=== PATIENT | female | born 1950 | race Caucasian/White ===

== ENCOUNTER → 2016-05-26 | Outpatient (CLI) | payer MEDICARE ==
--- NOTE | 2016-05-27 14:35 | MM ---
Reason for exam: screening (asymptomatic). Last mammogram was performed 1 year and 1 month ago. History: Patient is postmenopausal and is nulliparous. Took estrogen for 2 years. Physical Findings: A clinical breast exam by your physician is recommended on an annual basis and results should be correlated with mammographic findings. MG 3D Screening Mammo W/Cad Bilateral CC and MLO view(s) were taken. Prior study comparison: April 30, 2015, bilateral MG 3d screening mammo w/cad. February 15, 2014, mammogram, performed at [facility]. The breast tissue is heterogeneously dense. This may lower the sensitivity of mammography. There is no discrete abnormality. No significant changes when compared with prior studies. ASSESSMENT: Negative, BI-RAD 1 RECOMMENDATION: Routine screening mammogram of both breasts in 1 year.
== END ==
LOC: RADMAMWWP 09:08
PROVIDERS: ATTEND Obstetrics & Gynecology
DX: Z12.31 Encounter for screening mammogram for malignant neoplasm of breast (principal)
CPT/HCPCS: 77063; G0202

== ENCOUNTER → 2017-08-16 | Outpatient (CLI) | payer MEDICARE ==
--- NOTE | 2017-08-18 09:13 | MM ---
Reason for exam: screening (asymptomatic). Last mammogram was performed 1 year and 3 months ago. History: Patient is postmenopausal and is nulliparous. Took estrogen for 2 years. Physical Findings: A clinical breast exam by your physician is recommended on an annual basis and results should be correlated with mammographic findings. MG 3D Screening Mammo W/Cad Bilateral CC and MLO view(s) were taken. Prior study comparison: May 27, 2016, bilateral MG 3d screening mammo w/cad. April 30, 2015, bilateral MG 3d screening mammo w/cad. The breast tissue is heterogeneously dense. This may lower the sensitivity of mammography. Small grouped calcifications 9 o'clock left breast not seen well previously on the MLO views. No significant changes when compared with prior studies. ASSESSMENT: Negative, BI-RAD 1 RECOMMENDATION: Routine screening mammogram of both breasts in 1 year.
== END | disposition home or self-care (01) ==
LOC: RADMAMWWP 08:38
PROVIDERS: ATTEND Internal Medicine
DX: Z12.31 Encounter for screening mammogram for malignant neoplasm of breast (principal)
CPT/HCPCS: 77063; 77067

== ENCOUNTER 2018-09-06 09:05 | Emergency (ER) | payer MEDICARE ==
[2018-09-06 09:26] VITALS: BP 109/69; PULSE 85; RESP 18; TEMP 98.3
--- NOTE | 2018-09-06 09:48 | ED ---
Skin/Abscess/FB HPI - General Chief complaint: Skin/Abscess/Foreign Body Stated complaint: poss poison heidi Time Seen by Provider: 09/06/18 09:37 Source: patient, RN notes reviewed Mode of arrival: ambulatory Limitations: no limitations - History of Present Illness Initial comments: 68-year-old female presented from chief complaint rash. Patient states started a few days ago after working out in the yard. Patient is very itchy. He did try some topical pain with no relief. Patient denies any fevers or chills. Patient states that she believes it's poison heidi. - Related Data Home Medications Medication Instructions Recorded Confirmed Ascorbic Acid [Vitamin C] 500 mg PO DAILY 09/06/18 09/06/18 Calcium Carbonate [Calcium] 600 mg PO DAILY 09/06/18 09/06/18 Cholecalciferol [Vitamin D3 (25 1,000 unit PO DAILY 09/06/18 09/06/18 Mcg = 1000 Iu)] Clobetasol Propionate [Temovate 1 applic TOPICAL BID 09/06/18 09/06/18 0.05% Cream] Cyanocobalamin (Vitamin B-12) 1,000 mcg PO DAILY 09/06/18 09/06/18 [Vitamin B-12] Previous Rx's Medication Instructions Recorded predniSONE 10 mg PO DIRECTED #30 tab 09/06/18 Allergies Allergy/AdvReac Type Severity Reaction Status Date / Time No Known Allergies Allergy Verified 09/06/18 09:50 Review of Systems ROS Statement: Those systems with pertinent positive or pertinent negative responses have been documented in the HPI. ROS Other: All systems not noted in ROS Statement are negative. Past Medical History Past Medical History: Osteoarthritis (OA) History of Any Multi-Drug Resistant Organisms: None Reported Past Surgical History: Orthopedic Surgery Additional Past Surgical History / Comment(s): foot surg., shoulder Past Anesthesia/Blood Transfusion Reactions: No Reported Reaction Past Psychological History: No Psychological Hx Reported Smoking Status: Former smoker Past Alcohol Use History: Occasional Past Drug Use History: None Reported - Past Family History Father Family Medical History: Cancer Additional Family Medical History / Comment(s): pancreatic Mother Family Medical History: Cancer Additional Family Medical History / Comment(s): thyroid General Exam Limitations: no limitations General appearance: alert, in no apparent distress Head exam: Present: atraumatic, normocephalic, normal inspection ENT exam: Present: normal exam, normal oropharynx, mucous membranes moist Neck exam: Present: normal inspection. Absent: tenderness, meningismus, lymphadenopathy Respiratory exam: Present: normal lung sounds bilaterally. Absent: respiratory distress, wheezes, rales, rhonchi, stridor Cardiovascular Exam: Present: regular rate, normal rhythm, normal heart sounds. Absent: systolic murmur, diastolic murmur, rubs, gallop, clicks Neurological exam: Present: alert, oriented X3, CN II-XII intact Skin exam: Present: warm, dry, intact, normal color, rash ((Rash and upper extremities, chest facial region has cystitis with contact dermatitis, papular neurovascular rash.) Course Vital Signs 09/06/18 09:23 Temperature 98.3 F Pulse Rate 85 Respiratory 18 Rate Blood Pressure 109/69 O2 Sat by Pulse 98 Oximetry Medical Decision Making - Medical Decision Making 68-year-old female presented for rash. Patient has contact dermatitis related to poison heidi. Patient's general steroids continue topical creams. Return parameters were discussed. Disposition Clinical Impression: Contact dermatitis Disposition: HOME SELF-CARE Condition: Stable Instructions (If sedation given, give patient instructions): Poison Heidi (ED) Additional Instructions: Please return to the Emergency Department if symptoms worsen or any other concerns. Prescriptions: predniSONE 10 mg PO DIRECTED #30 tab Is patient prescribed a controlled substance at d/c from ED?: No Referrals: Rossana Martinez DO [Primary Care Provider] - 1-2 days Time of Disposition: 09:48
== END 2018-09-06 09:59 | disposition home or self-care (01) ==
LOC: EC 09:05
DX: L25.5 Unspecified contact dermatitis due to plants, except food (principal); Z87.891 Personal history of nicotine dependence
CPT/HCPCS: 99282

== ENCOUNTER → 2018-12-22 | Outpatient (CLI) | payer MEDICARE ==
--- NOTE | 2018-12-22 11:21 | BD ---
EXAMINATION TYPE: Axial Bone Density DATE OF EXAM: 12/22/2018 COMPARISON: NONE CLINICAL HISTORY: M 81.0 Height: 61.5 Weight: 149 FRAX RISK QUESTIONS: Alcohol (3 or more units per day): no Family History (Parent hip fracture): no Glucocorticoids (More than 3mos): no (Ex: prednisone, prednisolone, methylprednisolone, dexamethasone, and hydrocortisone). History of Fracture in Adulthood: no Secondary Osteoporosis: 1. Type 1 Diabetes: no 2. Hyperthyroidism: no 3. Menopause before 45: no 4. Malnutrition: no 5. Chronic liver disease: no Rheumatoid Arthritis: no Current Tobacco Use: no RISK FACTORS HISTORY OF: Family History of Osteoporosis: no Active: yes Diet low in dairy products/other sources of calcium: no Postmenopausal woman: yes Take estrogen and/or progesterone medications: not now How long: estrogen about 2 years Lost more than 2 inches in height since high school: no Frequent falls: no Poor Health: no Hyperparathyroidism: no Adrenal Insufficiency: no MEDICATIONS: Prednisone or other steroids: no Thyroid Medications: no Osteoporosis Medications: no Additional Medications: calcium & Vitamin D Additional History: none to note EXAM MEASUREMENTS: Bone mineral densitometry was performed using the Xiimo System. Bone mineral density as measured about the Lumbar spine is: ----- L1-L4(G/cm2): 1.474 T Score Values are as follows: ----- L2: 2.3 ----- L3: 1.6 ----- L4: 3.7 ----- L1-L4: 2.4 Bone mineral density not previously done at this facility; done in physician office Bone mineral density about the R hip (g/cm2): 0.906 Bone mineral density about the L hip (g/cm2): 0.876 T Score values are as follows: -----R Neck: -0.9 -----L Neck: -1.2 -----R Total: -0.6 -----L Total: -0.2 Bone mineral density not previously done at this facility; done on physician office IMPRESSION: Osteopenia (T Score between -2.5 and -1). There is slightly increased risk of fracture and the patient may be considered for treatment. Re-Screen 2-5 years. NOTE: T-SCORE=SD OF THE YOUNG ADULT MEAN.
--- NOTE | 2018-12-23 13:57 | MM ---
Reason for exam: screening (asymptomatic). Last mammogram was performed 1 year and 4 months ago. History: Patient is postmenopausal and is nulliparous. Took hormonal contraceptives for 2 years. Took estrogen for 2 years. Physical Findings: A clinical breast exam by your physician is recommended on an annual basis and results should be correlated with mammographic findings. MG 3D Screening Mammo W/Cad Bilateral CC and MLO view(s) were taken. Prior study comparison: August 16, 2017, bilateral MG 3d screening mammo w/cad. May 27, 2016, bilateral MG 3d screening mammo w/cad. There are scattered fibroglandular densities. No significant changes when compared with prior studies. ASSESSMENT: Benign, BI-RAD 2 RECOMMENDATION: Routine screening mammogram of both breasts in 1 year.
== END | disposition home or self-care (01) ==
LOC: RADMAMWWP 07:17
PROVIDERS: ATTEND Internal Medicine
DX: Z12.31 Encounter for screening mammogram for malignant neoplasm of breast (principal); M85.80 Other specified disorders of bone density and structure, unspecified site; M81.0 Age-related osteoporosis without current pathological fracture
CPT/HCPCS: 77063; 77067; 77080

== ENCOUNTER → 2019-09-21 | Outpatient (CLI) | payer MEDICARE ==
--- NOTE | 2019-09-21 22:29 | MR ---
EXAMINATION TYPE: MR shoulder RT wo con DATE OF EXAM: 09/21/2019 COMPARISON: Prior right shoulder MRI February 27, 2014. Prior right shoulder x-ray August 22, 2019. HISTORY: Rt shoulder pain x 3 mos, prior surgery 5 yrs ago TECHNIQUE: Multiplanar, multisequence imaging of the right shoulder is performed without contrast. FINDINGS: Exam noted suboptimal as patient is unable to hold still, there is motion artifact degradat ion present. Rotator Cuff: There is artifact from prior rotator cuff surgery with metallic anchors along the later al aspect of the humeral head. There is recurrent tear of the posterior one third of the supraspinatu s tendon fibers appreciated on sagittal image 6 with roughly 6 mm tendon gap identified. Distal infra spinatus tendon shows no recurrent tear. Subscapularis tendon is intact. The rotator cuff Muscle bulk is preserved. Acromioclavicular Joint: Moderate capsular hypertrophy. Distal acromion morphology unremarkable. Unde rlying fat plane maintained. Marked improvement from prior after surgery. Glenohumeral Joint: Moderate-sized joint effusion increased from prior. Some narrowing with cartilagi nous loss along the osseous glenoid. No significant new spurring. Labrum: Superior labrum is blunted with increased signal suggesting interval tear. Biceps Tendon: The long head of biceps is in normal location within bicipital groove. Intracapsular p ortion not well identified, at least partial tearing is felt present. Bone marrow signal: No focal abnormal marrow signal is appreciated. Other: No additional significant abnormality is appreciated. IMPRESSION: 1. Interval rotator cuff repair surgery. Recurrent partial tearing posterior one third posterior fibe rs supraspinatus tendon. 2. Improved AC joint arthropathy after surgery, no MRI evidence for persistent impingement. 3. Suspect new tear of the superior labrum and partial tearing of the intracapsular portion long head of biceps tendon.
== END | disposition home or self-care (01) ==
LOC: RADMRIMAIN 07:58
PROVIDERS: ATTEND Orthopaedic Surgery
DX: M12.811 Other specific arthropathies, not elsewhere classified, right shoulder (principal); M75.101 Unspecified rotator cuff tear or rupture of right shoulder, not specified as traumatic; Z98.890 Other specified postprocedural states

== ENCOUNTER → 2019-12-01 | Outpatient (CLI) | payer MEDICARE | END | disposition home or self-care (01) | LOC: LABPAT 07:28 | PROVIDERS: ATTEND Orthopaedic Surgery | DX: Z01.818 Encounter for other preprocedural examination (principal); M75.41 Impingement syndrome of right shoulder | CPT/HCPCS: 93005 ==

== ENCOUNTER 2019-12-20 05:44 | Day surgery (SDC) | payer MEDICARE ==
[2019-12-19 09:45] VITALS: BMI 27.4
--- NOTE | 2019-12-19 14:49 | HP ---
HISTORY AND PHYSICAL DATE OF SURGERY: 12/20/2019 Rola Queen is a 69-year-old patient seen with progressive right shoulder pain. We discussed options. She elected to proceed with right shoulder arthroscopy. Consent regarding procedure was obtained. PAST MEDICAL HISTORY: Noncontributory. PAST SURGICAL HISTORY: Right shoulder arthroscopy, foot surgery. DAILY MEDICATIONS: Vitamins. ALLERGIES: None. SOCIAL HISTORY: She denies tobacco use. PHYSICAL EVALUATION RIGHT SHOULDER: Flexion 150 degrees, abduction 140 degrees, external rotation is 40 degrees with some pain and weakness. Tenderness along the anterolateral acromion, rotator cuff insertion site. Impingement is positive at 90 degrees. Drop-arm sign is positive. Distal neurovascular exam is intact. RIGHT SHOULDER RADIOGRAPHS: Right shoulder radiographs revealed a type 2 anterior acromion, acromioclavicular joint osteoarthritis, cystic changes of the greater tuberosity. Right shoulder MRI revealed a rotator cuff tendon tear, labral tear. IMPRESSION: Right shoulder impingement with rotator cuff tear and labral tear. PLAN: Right shoulder arthroscopy, subacromial decompression, arthroscopic rotator cuff repair, possible Esme procedure and debridement. MMODL / IJN: [id number] /
[~2019-12-20 05:44] MED LIST: DEXAMETHASONE SOD PHOSPHATE 10 MG/ML 1 ML VIAL IV ONE; HYDROmorphone 0.5 MG/0.5 ML SYRINGE IVP PRN; LACTATED RINGERS 1,000 ML IV SCH; MIDAZOLAM 2 MG/2 ML VIAL IV PRN; ONDANSETRON 4 MG/2 ML VIAL IVP ONE; fentaNYL (PF) 50 MCG/ML 2 ML AMP IV PRN; fentaNYL (PF) 50 MCG/ML 2 ML AMP IVP PRN
[2019-12-20 06:24] VITALS: RESP 16
[2019-12-20] MEDS ORDERED: LIDOCAINE 1% (10MG/ML) FOR IV START INTRADERMA ONE (06:31)
[2019-12-20] MEDS ORDERED: NEOSTIGMINE 1 MG/ML 10 ML VIAL ONE (07:50)
[2019-12-20] MEDS ORDERED: ROCURONIUM BROMIDE 10 MG/ML 5 ML VIAL IV ONE (07:50)
[2019-12-20] MEDS ORDERED: GLYCOPYRROLATE 0.2 MG/ML 2 ML VIAL ONE (07:50)
[2019-12-20] MEDS ORDERED: PROPOFOL 10 MG/ML 20 ML VIAL IV ONE (07:50)
[2019-12-20] MEDS ORDERED: ePHEDrine SULFATE/0.9% NACL/PF 50 MG/5 ML SYRINGE IV ONE (07:50)
[2019-12-20] MEDS ORDERED: LIDOCAINE 1% INJ 10MG/ML (20 ML MDV) ONE (07:50)
[2019-12-20] MEDS ORDERED: SUCCINYLCHOLINE CHLORIDE 100 MG/5 ML SYR IV ONE (07:50)
--- NOTE | 2019-12-20 08:01 | P.ANPRN ---
Procedure Note - Anesthesia - Nerve Block Performed Right Interscalene Single Time Out Performed: Yes Date of Procedure: 12/20/19 Procedure Start Time: 06:46 Procedure Stop Time: 06:57 Location of Patient: PreOp Indication: Acute Post-Operative Pain, Requested by Surgeon Sedation Type: Sedate with meaningful contact maintained Preparation: Sterile Prep, Sterile Dressing Position: Sitting Catheter: None Needle Types: Facet Needle Gauge: 21 Ultrasound used to visualize needle placement: Yes Ultrasound used to observe medication spread: Yes Injectate: 0.5% Ropivacaine (see comment for volume) (30 ml + decadron 4 mg) Blood Aspirated: No Pain Paresthesia on Injection Noted: No Resistance on Injection: Normal Image Stored and Saved: Yes Events: Uneventful and Well Tolerated
[2019-12-20] MEDS ORDERED: LACTATED RINGERS 1,000 ML IV ONE (09:01)
[2019-12-20 09:23] VITALS: TEMP 96.8
--- NOTE | 2019-12-20 09:31 | P.OP ---
Date of Procedure: 12/20/19 Preoperative Diagnosis: Right shoulder impingement Postoperative Diagnosis: 1. Right shoulder rotator cuff tear 2. Right shoulder impingement 3. Right shoulder acromioclavicular joint osteoarthritis Procedure(s) Performed: 1. Right shoulder arthroscopic rotator cuff repair 2. Right shoulder arthroscopic subacromial decompression 3. Right shoulder arthroscopic Esme procedure Implants: 15.5 Arthrex swivel lock anchor Anesthesia: GETA, regional (Interscalene block) Surgeon: Praneeth Garcia Cylinder Inspector #1: Ken Johns Estimated Blood Loss (ml): 8 Pathology: none sent Condition: stable Disposition: PACU Indications for Procedure: 69-year-old patient seen with progressive right shoulder pain. After treatment options were discussed, she elected to proceed with arthroscopy. Operative Findings: See description of procedure Description of Procedure: Patient underwent an interscalene block by department of anesthesia. The patient was then taken to the operative suite. The patient underwent a general anesthetic by the department of anesthesia. The patient was placed into a lateral position and secured. There was appropriate padding of the bony p rominence. Right shoulder was then prepped and draped in normal sterile orthopedic fashion. We placed the extremity in 10 pounds of longitudinal traction. A posterior incision was now made for a posterior working portal site. The trocar and cannula were inserted into the glenohumeral joint. Arthroscopy was initiated. Spinal needle was now inserted anteriorly, to ascertain the anterior working portal site. An incision was now made in that area, a trocar was inserted followed by a probe. The biceps tendon was absent. There were grade 2 chondromalacia changes of the glenoid fossa with no osteochondral tears present. The labrum was probed and found to be stable. At this point instruments removed from glenohumeral joint. Utilizing the posterior working portal site, the trocar and cannula were inserted into the subacromial space. Arthroscopy initiated. I made an incision 2 fingerbreadths lateral to the acromion. I introduced my trocar followed by my ArthroCare ablator. I now began ablating thick subacromial bursal tissue, which exposed the undersurface of the anterior acromion. There was diminished subacromial space. There was a very prominent anterior acromion. A motorized bur was introduced and a subacromial decompression was performed. I also excised some osteophytes off the inferior aspect of the distal clavicle. The AC joint was visualized and noted to be fairly arthritic. The motorized bur was introduced in the anterior portal site and a Esme procedure was performed without difficulty, decompressing the AC joint nicely. I turned my attention to the rotator cuff. There was a 1.5 cm rotator cuff tear on the posterior aspect of the distal supraspinatus. I debrided the margins gained down to stable tendon tissue. I abraded the footprint with a motorized bur. With the assistance of Bassem DE LOS SANTOS I passed 2 everted mattress sutures through good bites of rotator cuff tendon. I punched the hole in the area footprint for insertion of an anchor. All 4 limbs of suture were passed through the eyelet of a 5.5 Arthrex a lock anchor. I placed the eyelet into the prepunched hole. Bassem DE LOS SANTOS tensioned all 4 limbs of suture and deployed the anchor with good fixation noted. All residual suture limbs were now clipped. We had good compression of the tendon along the entire footprint. I injected 1 mL Renyte intra-articular. Instruments now removed from the portal sites. All portal sites were approximated with nylon suture. Sterile dressings were applied followed by a shoulder sling. Ken DE LOS SANTOS assisted in this complex case. The patient was awakened, transferred to a bed, and taken to recovery in stable condition.
[2019-12-20 09:57] VITALS: PULSE 52
[2019-12-20 10:21] VITALS: BP 122/64
== END 2019-12-20 10:59 | disposition home or self-care (01) ==
LOC: OR 05:44
PROVIDERS: ATTEND Orthopaedic Surgery
DX: M75.101 Unspecified rotator cuff tear or rupture of right shoulder, not specified as traumatic (principal); M75.41 Impingement syndrome of right shoulder; M19.011 Primary osteoarthritis, right shoulder; M25.811 Other specified joint disorders, right shoulder; M25.711 Osteophyte, right shoulder; M94.211 Chondromalacia, right shoulder; Z87.891 Personal history of nicotine dependence; Z98.890 Other specified postprocedural states
CPT/HCPCS: 64415; 76942; 29824; 29826; 29827; C1713; Q4212; J2250; J1100; J2710; J2405; J0690; J2001; J0330; J2704

== ENCOUNTER → 2020-03-15 | Outpatient (CLI) | payer MEDICARE ==
--- NOTE | 2020-03-18 09:55 | MM ---
Reason for exam: screening (asymptomatic). Last mammogram was performed 1 year and 3 months ago. History: Patient is postmenopausal and is nulliparous. Took hormonal contraceptives for 2 years. Took estrogen for 2 years. Physical Findings: A clinical breast exam by your physician is recommended on an annual basis and results should be correlated with mammographic findings. MG 3D Screening Mammo W/Cad Bilateral CC and MLO view(s) were taken. Prior study comparison: December 22, 2018, bilateral MG 3d screening mammo w/cad. August 16, 2017, bilateral MG 3d screening mammo w/cad. The breast tissue is heterogeneously dense. This may lower the sensitivity of mammography. There is no discrete abnormality. No significant changes when compared with prior studies. ASSESSMENT: Negative, BI-RAD 1 RECOMMENDATION: Routine screening mammogram of both breasts in 1 year.
== END | disposition home or self-care (01) ==
LOC: RADMAMWWP 08:37
PROVIDERS: ATTEND Internal Medicine
DX: Z12.31 Encounter for screening mammogram for malignant neoplasm of breast (principal)
CPT/HCPCS: 77063; 77067

== ENCOUNTER → 2020-04-02 | Outpatient (CLI) | payer MEDICARE ==
--- NOTE | 2020-04-02 23:39 | MR ---
EXAMINATION TYPE: MR shoulder LT wo con DATE OF EXAM: 04/02/2020 COMPARISON: None HISTORY: Left shoulder pain Multiplanar multiecho imaging of the left shoulder was performed without contrast. There are subscapularis tendon is intact. Biceps tendon is intact. There is a mild shoulder joint eff usion. The glenoid larry appear intact. There is increased signal within the supraspinatus tendon bran r the greater tuberosity of the humerus. There is slight thickening. There is no retraction. There ar e multiple areas of cystic change inferior to the lateral and of the clavicle. These measure up to 8 mm. There is a AC joint effusion. Cystic changes could relate to multiple synovial cysts from the AC joint. I see no bony destructive process. There is no evidence of a fracture. IMPRESSION: Mild shoulder joint effusion. There is full-thickness tear of the supraspinatus tendon without retrac tion. Cystic fluid collection changes inferior to the clavicle are probably related to multiple synovial cy sts from the AC joint.
== END | disposition home or self-care (01) ==
LOC: RADMRIMAIN 10:38
PROVIDERS: ATTEND Orthopaedic Surgery
DX: M75.102 Unspecified rotator cuff tear or rupture of left shoulder, not specified as traumatic (principal)

== ENCOUNTER → 2020-04-23 | Outpatient (CLI) | payer MEDICARE ==
[2020-04-23 10:12] LABS: Basophils % (A) 1 %; Eosinophils # (A) 0.2 k/uL (0-0.7); Eosinophils % (A) 5 %; HCT 41.7 % (34.0-46.0); HGB 13.5 gm/dL (11.4-16.0); Lymphocytes # (A) 1.2 k/uL (1.0-4.8); Lymphocytes % (A) 28 %; MCH 30.6 pg (25.0-35.0); MCHC 32.5 g/dL (31.0-37.0); MCV 94.2 fL (80.0-100.0); Mean Platelet Volume 7.6; Monocytes # (A) 0.3 k/uL (0-1.0); Monocytes % (A) 7 %; Neutrophils # (A) 2.4 k/uL (1.3-7.7); Neutrophils % (A) 57 %; Platelet Count 286 k/uL (150-450); RBC 4.42 m/uL (3.80-5.40); WBC 4.3 k/uL (3.8-10.6)
[2020-04-23 10:26] LABS: Potassium 4.8 mmol/L (3.5-5.1)
== END | disposition home or self-care (01) ==
LOC: LABPAT 09:04
PROVIDERS: ATTEND Orthopaedic Surgery
DX: Z01.812 Encounter for preprocedural laboratory examination (principal); M75.42 Impingement syndrome of left shoulder
CPT/HCPCS: 36415; 80051; 85025

== ENCOUNTER 2020-05-08 07:41 | Day surgery (SDC) | payer MEDICARE ==
[2020-05-06 15:26] VITALS: BMI 26.5
--- NOTE | 2020-05-07 16:20 | HP ---
HISTORY AND PHYSICAL Surgery is scheduled for 05/08/2020 Rola Queen is a 70-year-old patient seen with progressive left shoulder pain. We discussed options for treatment. She elected to proceed with arthroscopy. Consent was obtained. PAST MEDICAL HISTORY: Noncontributory. PAST SURGICAL HISTORY: Right shoulder arthroscopy, foot surgery. DAILY MEDICATIONS: [id number] vitamins. ALLERGIES: None. SOCIAL HISTORY: She denies tobacco use. PHYSICAL EVALUATION OF THE LEFT SHOULDER: Flexion is 150, abduction is 130, external rotation 20 with weakness, tenderness along the anterolateral acromion and rotator cuff insertion. Positive impingement sign at 90 degrees. Drop-arm sign is positive. Cross adduction sign is positive. Distal neurovascular exam is intact. Radiographs of the left shoulder type 2 acromion, cystic changes with tuberosity. MRI left shoulder rotator cuff tear. IMPRESSION: Left shoulder impingement with rotator cuff tear. PLAN: Left shoulder arthroscopy, subacromial decompression, arthroscopic rotator cuff repair, Esme procedure and debridement. MMODL / IJN: [id number] /
[~2020-05-08 07:41] MED LIST changes: -DEXAMETHASONE SOD PHOSPHATE 10 MG/ML 1 ML VIAL IV ONE; +DEXAMETHASONE SOD PHOSPHATE 4 MG/ML 1 ML VIAL IV ONE; +LIDOCAINE 1% (10MG/ML) FOR IV START INTRADERMA PRN; -ONDANSETRON 4 MG/2 ML VIAL IVP ONE; -fentaNYL (PF) 50 MCG/ML 2 ML AMP IV PRN; -fentaNYL (PF) 50 MCG/ML 2 ML AMP IVP PRN
[2020-05-08] MEDS ORDERED: ONDANSETRON 4 MG/2 ML VIAL ONE (08:21)
[2020-05-08] MEDS ORDERED: fentaNYL (PF) 50 MCG/ML 2 ML AMP IVP ONE (08:39)
--- NOTE | 2020-05-08 09:09 | P.ANPRN ---
Procedure Note - Anesthesia - Nerve Block Performed Left Interscalene Time Out Performed: Yes (08:37) Date of Procedure: 05/08/20 Procedure Start Time: Procedure Stop Time: : Location of Patient: PreOp Indication: Acute Post-Operative Pain, Requested by Surgeon (Dr Garcia) Sedation Type: Sedate with meaningful contact maintained Preparation: Sterile Prep Position: Supine Catheter: None Needle Types: Pajunk (22g) Ultrasound used to visualize needle placement: Yes Ultrasound used to observe medication spread: Yes Injectate: 0.5% Ropivacaine (see comment for volume) (20cc + decadron 4mg) Blood Aspirated: No Pain Paresthesia on Injection Noted: No Resistance on Injection: Normal Image Stored and Saved: Yes Events: Uneventful and Well Tolerated
[2020-05-08] MEDS ORDERED: LIDOCAINE 1% INJ 10MG/ML (20 ML MDV) ONE (09:19)
[2020-05-08] MEDS ORDERED: PROPOFOL 10 MG/ML 20 ML VIAL IV ONE (09:19)
[2020-05-08] MEDS ORDERED: ROPIVACAINE 5 MG/ML 30 ML VIAL ONE (09:19)
[2020-05-08] MEDS ORDERED: PHENYLEPHRINE-0.9% NACL SYG 1,000 MCG/10 ML SYRINGE ONE (09:19)
[2020-05-08] MEDS ORDERED: SUCCINYLCHOLINE CHLORIDE 100 MG/5 ML SYR IV ONE (09:19)
[2020-05-08] MEDS ORDERED: ROCURONIUM 10 MG/ML (10 ML VIAL) IV ONE (09:19)
[2020-05-08] MEDS ORDERED: MIDAZOLAM 2 MG/2 ML VIAL ONE (09:19)
[2020-05-08] MEDS ORDERED: fentaNYL (PF) 50 MCG/ML 2 ML AMP ONE (09:19)
[2020-05-08] MEDS ORDERED: DEXAMETHASONE SOD PHOSPHATE 4 MG/ML 1 ML VIAL ONE (09:19)
[2020-05-08] MEDS ORDERED: LACTATED RINGERS 1,000 ML IV ONE (10:00)
--- NOTE | 2020-05-08 11:08 | P.OP ---
Date of Procedure: 05/08/20 Preoperative Diagnosis: Left shoulder impingement Postoperative Diagnosis: 1. Left shoulder rotator cuff tear 2. Left shoulder impingement 3. Left shoulder acromioclavicular joint osteoarthritis 4. Left shoulder partial long head biceps tendon tear Procedure(s) Performed: 1. Left shoulder arthroscopic rotator cuff repair 2. Left shoulder arthroscopic subacromial decompression 3. Left shoulder arthroscopic Esme procedure 4. Left shoulder arthroscopic biceps tenotomy Implants: 3Arthrex swivel lock anchors Anesthesia: GETA, regional (Interscalene block) Surgeon: Praneeth Garcia Atmospheric Scientist #1: Ken Johns Estimated Blood Loss (ml): 7 Pathology: none sent Condition: stable Disposition: PACU Indications for Procedure: 70-year-old patient seen with progressive left shoulder pain. After having treatment options discussed, she elected to proceed with arthroscopy. Operative Findings: See description of procedure Description of Procedure: Patient underwent an interscalene block by department of anesthesia. The patient was then taken to the operative suite. The patient underwent a general anesthetic by the department of anesthesia. The patient was placed into a lateral position and secured. There was appropriate padding of the bony prominence. Left shoulder was then prepped and draped in normal sterile orthopedic fashion. We placed the extremity in 10 pounds of longitudinal traction. A posterior incision was now made for a posterior working portal site. The trocar and cannula were inserted into the glenohumeral joint. Arthroscopy was initiated. Spinal needle was now inserted anteriorly, to ascertain the anterior working portal site. An incision was now made in that area, a trocar was inserted followed by a probe. There were grade 1/2 chondromalacia changes with no osteochondral tears present. There was some mild fraying of the anterior labrum. There was partial tearing hyperemia long head biceps tendon. I performed a biceps tenotomy. I debrided that superficial fraying of the labrum anteriorly. I now probed the labrum again was found to be stable. Instruments were now removed from the glenohumeral joint. Utilizing the posterior working portal site, the trocar and cannula were inserted into the subacromial space. Arthroscopy initiated. I made an incision 2 fingerbreadths lateral to the acromion. I introduced my trocar followed by my ArthroCare ablator. I now began ablating thick subacromial bursal tissue, which exposed the undersurface of the anterior acromion. There was diminished subacromial space. There was a very prominent anterior acromion. A motorized bur was introduced and a subacromial decompression was performed. I also excised some osteophytes off the inferior aspect of the distal clavicle. The AC joint was visualized and noted to be fairly arthritic. The motorized bur was introduced in the anterior portal site and a Esme procedure was performed without difficulty, decompressing the AC joint nicely. I turned my attention to the rotator cuff. There was a 1.52 cm rotator cuff tear. I debrided the margins getting down to stable tendon tissue. The defect measured approximately 2 cm and it was freely mobile over the footprint. I passed 4 everted mattress sutures through good bites of rotator cuff tendon. I punched 2 holes in the footprint area for insertion of anchors. 4 suture limbs were passed through the eyelet of a Arthrex anchor and then the eye was placed into the pre-punch hole. I held in position while Bassem DEL OS SANTOS tension the sutures and applied the ankle with good fixation noted. Suture limbs were clipped. We now did the exact same for the anterior 4 suture limbs with good compression of footprint tear. All residual suture limbs were now clipped. I visualized a good size dogear anteriorly. I now passed an everted mattress suture through good bites of tendon there. I now repaired that with one last anchor. We had good compression of the tendon along the entire footprint. I injected 1 mL Renyte intra-articular. Instruments now removed from the portal sites. All portal sites were approximated with nylon suture. Sterile dressings were applied followed by a shoulder sling. Ken DE LOS SANTOS assisted in this complex case. The patient was awakened, transferred to a bed, and taken to recovery in stable condition.
[2020-05-08 11:13] VITALS: TEMP 98
[2020-05-08 12:01] VITALS: RESP 18
[2020-05-08 12:10] VITALS: BP 153/100; PULSE 82
== END 2020-05-08 12:55 | disposition home or self-care (01) ==
LOC: OR 07:41
PROVIDERS: ATTEND Orthopaedic Surgery
DX: M75.102 Unspecified rotator cuff tear or rupture of left shoulder, not specified as traumatic (principal); M25.812 Other specified joint disorders, left shoulder; M19.012 Primary osteoarthritis, left shoulder; M66.822 Spontaneous rupture of other tendons, left upper arm; M94.212 Chondromalacia, left shoulder; M25.712 Osteophyte, left shoulder; Z98.890 Other specified postprocedural states
CPT/HCPCS: 64415; 76942; 29826; 29827; 29824; C1713 ×2; Q4212; J2250; J1100; J2405; J0690; J2001; J3010; J2795; J2370; J0330; J2704

== ENCOUNTER → 2021-04-17 | Outpatient (CLI) | payer MEDICARE ==
--- NOTE | 2021-04-17 10:46 | MM ---
Reason for exam: screening (asymptomatic). Last mammogram was performed 1 year and 1 month ago. History: Patient is postmenopausal and is nulliparous. Took hormonal contraceptives for 2 years. Took estrogen for 2 years. Physical Findings: A clinical breast exam by your physician is recommended on an annual basis and results should be correlated with mammographic findings. MG 3D Screening Mammo W/Cad Bilateral CC and MLO view(s) were taken. Prior study comparison: March 15, 2020, bilateral MG 3d screening mammo w/cad. December 22, 2018, bilateral MG 3d screening mammo w/cad. The breast tissue is heterogeneously dense. This may lower the sensitivity of mammography. There are benign appearing regional, round calcifications bilaterally. There is no discrete abnormality. ASSESSMENT: Benign, BI-RAD 2 RECOMMENDATION: Routine screening mammogram of both breasts in 1 year.
== END | disposition home or self-care (01) ==
LOC: RADMAMWWP 08:15
PROVIDERS: ATTEND Internal Medicine
DX: Z12.31 Encounter for screening mammogram for malignant neoplasm of breast (principal)
CPT/HCPCS: 77063; 77067

== ENCOUNTER → 2022-08-06 | Outpatient (CLI) | payer MEDICARE ==
--- NOTE | 2022-08-07 19:35 | MM ---
Reason for Exam: Screening (asymptomatic). Last mammogram was performed 1 year(s) and 4 month(s) ago. Patient History: Menarche at age 11. Patient has no children. Postmenopausal. Patient used Hormonal Contraceptives for 2 years. Risk Values: Candace 5 year model risk: 2.0%. NCI Lifetime model risk: 4.5%. Prior Study Comparison: 12/22/2018 Bilateral Screening Mammogram, [facility]. 03/15/2020 Bilateral Screening Mammogram, [facility]. 04/17/2021 Bilateral Screening Mammogram, [facility]. Tissue Density: The breast tissue is heterogeneously dense. This may lower the sensitivity of mammography. Findings: Analyzed By CAD. There is no suspicious group of microcalcifications or new suspicious mass in either breast. Overall Assessment: Negative, BI-RAD 1 Management: Screening Mammogram of both breasts in 1 year. . Patient should continue monthly self-breast exams. A clinical breast exam by your physician is recommended on an annual basis. This exam should not preclude additional follow-up of suspicious palpable abnormalities. Note on Candace scores and lifetime risk: 1. A Candace score greater than 3% is considered moderate risk. If this is the case, consider specialist referral to assess eligibility for a risk reducing agent. 2. If overall lifetime risk for the development of breast cancer is 20% or higher, the patient may qualify for future screening with alternating mammogram and breast MRI. Electronically signed and approved by: Charley Ortega M.D. Radiologist
== END ==
LOC: RADMAMWWP 13:48
PROVIDERS: ATTEND Internal Medicine
DX: Z12.31 Encounter for screening mammogram for malignant neoplasm of breast (principal); Z78.0 Asymptomatic menopausal state
CPT/HCPCS: 77063; 77067

== ENCOUNTER → 2024-02-15 | Outpatient (CLI) | payer MEDICARE ==
--- NOTE | 2024-02-15 09:58 | MM ---
Reason for Exam: Screening (asymptomatic). Last mammogram was performed 1 year(s) and 6 month(s) ago. Patient History: Menarche at age 11. Patient has no children. Postmenopausal. Patient used Hormonal Contraceptives for 2 years. Risk Values: Candace 5 year model risk: 2.0%. NCI Lifetime model risk: 4.2%. Prior Study Comparison: 03/15/2020 Bilateral Screening Mammogram, [facility]. 04/17/2021 Bilateral Screening Mammogram, [facility]. 08/06/2022 Bilateral MG 3D screening mammo w/cad, [facility]. Tissue Density: There are scattered areas of fibroglandular density. Findings: Analyzed By CAD. Asymmetric density seen only on the left MLO view far posteriorly 13 cm. Additional views are recommended. Additional views are recommended. No suspicious calcifications seen within either breast. Overall Assessment: Incomplete: need additional imaging evaluation, BI-RAD 0 Management: Diagnostic Mammogram of the left breast. . Patient should continue monthly self-breast exams. A clinical breast exam by your physician is recommended on an annual basis. This exam should not preclude additional follow-up of suspicious palpable abnormalities. Note on Candace scores and lifetime risk: 1. A Candace score greater than 3% is considered moderate risk. If this is the case, consider specialist referral to assess eligibility for a risk reducing agent. 2. If overall lifetime risk for the development of breast cancer is 20% or higher, the patient may qualify for future screening with alternating mammogram and breast MRI. [facility], , 02/15/2024 9:55 AM. Electronically signed and approved by: Rafael Ball M.D. Radiologis
--- NOTE | 2024-02-15 10:34 | BD ---
EXAMINATION TYPE: Axial Bone Density DATE OF EXAM: 02/15/2024 CLINICAL HISTORY: 73 years old Female. ICD-10 CODE: M81.0 AGE-RELATED OSTEOPOROSIS , Additional Hist ory: Height: 5 ft 1 in Weight: 153 FRAX RISK QUESTIONS: Alcohol (3 or more units per day): no Family History (Parent hip fracture): no Glucocorticoids (More than 3mos): no (Ex: prednisone, prednisolone, methylprednisolone, dexamethasone, and hydrocortisone). History of Fracture in Adulthood: no Secondary Osteoporosis: 1. Type 1 Diabetes: no 2. Hyperthyroidism: no 3. Menopause before 45: no 4. Malnutrition: no 5. Chronic liver disease: no Rheumatoid Arthritis: no Current Tobacco Use: no RISK FACTORS HISTORY OF: Surgery to Spine/Hip(right/left)/Wrist (right/left): no MEDICATIONS: Thyroid Medications: none Osteoporosis Medications: none EXAM MEASUREMENTS: Bone mineral densitometry was performed using the [employer] System. Bone mineral density as measured about the Lumbar spine is: ----- L1-L4(G/cm2): 1.426 T Score Values are as follows: ----- L1: 2.0 ----- L2: 1.3 ----- L3: 1.0 ----- L4: 3.6 ----- L1-L4: 2.0 Z Score Values are as follows: ----- L1: 3.6 ----- L2: 2.9 ----- L3: 2.6 ----- L4: 5.2 ----- L1-L4: 3.7 Bone mineral density has: decreased -3.3 % since study of: 2019 Bone mineral density about the R hip (g/cm2): 0.866 Bone mineral density about the L hip (g/cm2): 0.891 T Score values are as follows: -----R Neck: -1.2 -----L Neck: -1.1 -----R Total: -0.9 -----L Total: -0.2 Z Score values are as follows: -----R Neck: 0.6 -----L Neck: 0.8 -----R Total: 0.7 -----L Total: 1.4 Bone mineral density has: decreased -2.2 % since study of: 2019 FRAX%s: The graph provided illustrates a 10.6 % chance for a major osteoporotic fx and a 1.9 % chance for the hips probability for fx in 10 years time. IMPRESSION: Normal (Values between +1 and -1 indicate normal bone mass). Consider repeating this study in 5 year s or sooner if there is some new clinical indication. NOTE: T-SCORE=SD OF THE YOUNG ADULT MEAN. [facility], , 02/15/2024 10:31 AM
== END | disposition home or self-care (01) ==
LOC: RADMAMWWP 07:58
PROVIDERS: ATTEND Internal Medicine
DX: Z12.31 Encounter for screening mammogram for malignant neoplasm of breast (principal); M81.0 Age-related osteoporosis without current pathological fracture; R92.323 Mammographic fibroglandular density, bilateral breasts; M85.89 Other specified disorders of bone density and structure, multiple sites; Z78.0 Asymptomatic menopausal state; Z92.0 Personal history of contraception
CPT/HCPCS: 77063; 77067; 77080

== ENCOUNTER → 2024-03-03 | Outpatient (CLI) | payer MEDICARE ==
--- NOTE | 2024-03-03 09:16 | MM ---
Reason for Exam: Clinical finding. Last screening mammogram was performed less than 1 month ago. Patient History: Menarche at age 11. Patient has no children. Postmenopausal. Patient used Hormonal Contraceptives for 2 years. Risk Values: Candace 5 year model risk: 2.0%. NCI Lifetime model risk: 4.2%. Prior Study Comparison: 04/17/2021 Bilateral Screening Mammogram, [facility]. 08/06/2022 Bilateral MG 3D screening mammo w/cad, [facility]. 02/15/2024 Bilateral MG 3D screening mammo w/cad, [facility]. Tissue Density: Left: The breasts are heterogeneously dense, which may obscure small masses. Findings: Analyzed By CAD. The far posterior asymmetric density central to inferior aspect left MLO view not clearly persisting on spot 3-D. No clear persisting abnormality on the spot 3-D CC view. This may represent superimposition shadow. Overall Assessment: Incomplete: need additional imaging evaluation, BI-RAD 0 Management: Diagnostic Breast Ultrasound of the left breast. [facility], , 03/03/2024 9:13 AM. Electronically signed and approved by: Charley Ortega M.D. Radiologist
--- NOTE | 2024-03-03 10:12 | USB ---
Reason for Exam: Additional evaluation requested from abnormal screening. Patient History: Menarche at age 11. Patient has no children. Postmenopausal. Patient used Hormonal Contraceptives for 2 years. Risk Values: Candace 5 year model risk: 2.0%. NCI Lifetime model risk: 4.2%. Technique: Method: Targeted. Prior Study Comparison: 04/17/2021 Bilateral Screening Mammogram, [facility]. 08/06/2022 Bilateral MG 3D screening mammo w/cad, [facility]. 02/15/2024 Bilateral MG 3D screening mammo w/cad, [facility]. Findings: The medial section of the breast of the left breast, the axilla of the left breast and the retroareolar of the left breast were scanned. Routine ultrasound medial aspect left breast 7:00 to 11:00 including scanning of the subareolar region and axilla. At the 11:00 position, 15 cm from nipple, there is a small 5 mm cyst abutting the undersurface of the skin layer. This could potentially correspond to the mammographic finding. At the 10:00 position, 15 cm from the nipple, there is a vague 5 mm echogenic area, typically a tiny lipoma. No other solid or cystic lesion or axillary adenopathy. Overall Assessment: Probably benign, BI-RAD 3 Management: Diagnostic Mammogram of the left breast in 6 months. A clinical breast exam by your physician is recommended on an annual basis and results should be correlated with mammographic findings. This exam should not preclude additional follow-up of suspicious palpable abnormalities. Results were given to the patient verbally at the time of exam. [facility], , 03/03/2024 10:09 AM. Electronically signed and approved by: Charley Ortega M.D. Radiologist
== END | disposition home or self-care (01) ==
LOC: RADMAMWWP 08:16
PROVIDERS: ATTEND Internal Medicine
DX: R92.8 Other abnormal and inconclusive findings on diagnostic imaging of breast (principal); R92.333 Mammographic heterogeneous density, bilateral breasts; Z78.0 Asymptomatic menopausal state; Z92.0 Personal history of contraception
CPT/HCPCS: 77065; 76642; G0279; 77061